=== PATIENT | male | born 1965 | race Caucasian/White ===

== ENCOUNTER 2020-08-03 09:05 | Inpatient (IN) ==
[2020-07-29 15:24] LABS: Appearance,Urine CLEAR; Bilirubin,Urine NEG (NEG); Color,Urine YELLOW; Culture Indicated,Urine NO; Glucose,Urine (UA) NEGATIVE (NEG); Ketones,Urine NEG (NEG); Leukocyte Esterase,Urine NEG /uL (NEG); Nitrate,Urine NEG (NEG); Protein,Urine NEG (NEG); Specific Gravity,Urine 1.017 (1.000-1.035); Urine Blood NEG mg/dL (<0.03); Urobilinogen,Urine NEG (NEG)
[2020-07-29 15:45] LABS: Basophils # (Auto) 0.04 K/mcL (0.00-0.30); Basophils % (Auto) 0.4 % (0.0-2.0); Eosinophils # (Auto) 0.23 K/mcL (0.00-0.70); Eosinophils % (Auto) 2.6 % (0.0-7.0); Granulocytes % (Auto) 62.7 % (38.0-78.0); Hematocrit 50.7 % (40.1-51.0); Hemoglobin 17.4 g/dL (13.7-17.5); Lymphocytes # (Auto) 2.39 K/mcL (1.50-4.80); Lymphocytes % (Auto) 26.7 % (15.5-49.0); Mean Cell Volume 90.9 fL (80.0-100.0); Mean Corpuscular HGB Conc 34.3 g/dL (31.0-36.0); Mean Platelet Volume 10.9 fL (7.4-10.4); Monocytes # (Auto) 0.68 K/mcL (0.10-0.90); Monocytes % (Auto) 7.6 % (1.0-12.0); Platelet Count 187 K/mcL (140-440); RBC 5.58 M/mcL (4.63-6.08); Red Cell Distribution Width 12.5 % (11.5-14.5); WBC 8.9 K/mcL (4.50-11.00)
[2020-07-29 15:57] LABS: Blood Urea Nitrogen 16 mg/dl (6-20); Calcium 9.3 mg/dl (8.6-10.4); Carbon Dioxide 25 mmol/L (22-30); Chloride 101 mmol/L (96-108); Glomerular Filtration Rate 96; Glucose 162 mg/dL (70-105)
[2020-07-29 15:58] LABS: Prothrombin Time 13.3 sec (11.9-14.5)
[~2020-08-03 09:05] MED LIST: ACETAMINOPHEN 500 MG TABLET PO SCH; CELECOXIB 200 MG CAPSULE PO SCH; IPRATROPIUM/ALBUTEROL 3 ML AMPUL.NEB NEB PRN; PREGABALIN 75 MG CAPSULE PO SCH; SCOPOLAMINE 1 PATCH PATCH TOPICAL PRN; ceFAZolin 3 GM in DEXTROSE 5% IN WATER 50 ML IV SCH; oxyCODONE 10 MG TAB.ER.12H PO SCH
[2020-08-03] MEDS ORDERED: HYDROmorphone 1 MG/ML SYRINGE ONE (10:48)
[2020-08-03] MEDS ORDERED: LIDOCAINE HCL/PF 100 MG/5 ML SYRINGE IV ONE (10:48)
[2020-08-03] MEDS ORDERED: DEXAMETHASONE 10 MG/ML VIAL ONE (10:48)
[2020-08-03] MEDS ORDERED: ROPIVACAINE HCL/PF 30 ML VIAL IJ ONE (10:48)
[2020-08-03] MEDS ORDERED: KETAMINE 100 MG/ML ML ONE (10:48)
[2020-08-03] MEDS ORDERED: SUCCINYLCHOLINE 20 MG/ML ML IV ONE (10:48)
[2020-08-03] MEDS ORDERED: ONDANSETRON 4 MG/2 ML VIAL ONE (10:48)
[2020-08-03] MEDS ORDERED: PHENYLEPHRINE 10 MG/ML VIAL ONE (10:48)
[2020-08-03] MEDS ORDERED: ROCURONIUM 10 MG/ML ML IV ONE (10:48)
[2020-08-03] MEDS ORDERED: MIDAZOLAM 5 MG/5 ML VIAL ONE (10:48)
[2020-08-03] MEDS ORDERED: fentaNYL 100 MCG/2 ML VIAL IV ONE (10:48)
[2020-08-03] MEDS ORDERED: PROPOFOL 200 MG/20 ML VIAL IV ONE (10:48)
[2020-08-03] MEDS ORDERED: SUGAMMADEX SODIUM 200 MG/2 ML VIAL IV ONE (10:48)
[2020-08-03] MEDS ORDERED: ePHEDrine 50 MG/ML AMPUL IV ONE (10:48)
[2020-08-03] MEDS ORDERED: GENTAMICIN SULFATE 800 MG/20 ML VIAL IR ONE (11:26)
[2020-08-03] MEDS ORDERED: diphenhydrAMINE 50 MG/ML VIAL IV PRN (11:41)
[2020-08-03] MEDS ORDERED: FLUMAZENIL 0.1 MG/ML ML IV PRN (11:41)
[2020-08-03] MEDS ORDERED: ONDANSETRON 4 MG/2 ML VIAL IV PRN ×2 (11:41→12:17)
[2020-08-03] MEDS ORDERED: IPRATROPIUM/ALBUTEROL 3 ML AMPUL.NEB NEB PRN (11:41)
[2020-08-03] MEDS ORDERED: fentaNYL 100 MCG/2 ML VIAL IV PRN (11:41)
[2020-08-03] MEDS ORDERED: HYDROmorphone 0.5 MG/0.5 ML SYRINGE IV PRN (11:41)
[2020-08-03] MEDS ORDERED: ePHEDrine 50 MG/ML AMPUL IV PRN (11:41)
[2020-08-03] MEDS ORDERED: MEPERIDINE 25 MG/ML SYRINGE IV PRN (11:41)
[2020-08-03] MEDS ORDERED: NALOXONE HCL 0.4 MG/ML VIAL IV PRN (11:41)
[2020-08-03] MEDS ORDERED: ATROPINE SULFATE 0.4 MG/ML VIAL IV PRN (11:41)
[2020-08-03] MEDS ORDERED: METHOCARBAMOL 1,000 MG/10 ML VIAL IV PRN (11:41)
[2020-08-03] MEDS ORDERED: PROMETHAZINE 25 MG/ML VIAL IV PRN (11:41)
[2020-08-03] MEDS ORDERED: BISACODYL 10 MG SUPP.RECT PR PRN (12:17)
[2020-08-03] MEDS ORDERED: HYDROmorphone 1 MG/ML SYRINGE IV PRN (12:17)
[2020-08-03] MEDS ORDERED: MAGNESIUM HYDROXIDE 30 ML ORAL.SUSP PO PRN (12:17)
[2020-08-03] MEDS ORDERED: ACETAMINOPHEN 325 MG TABLET PO PRN (12:17)
[2020-08-03] MEDS ORDERED: TRANEXAMIC ACID 1,000 MG/10 ML VIAL IV SCH (12:17)
[2020-08-03] MEDS ORDERED: FLEETS ADULT ENEMA PR PRN (12:17)
[2020-08-03] MEDS ORDERED: KETOROLAC 15 MG/ML VIAL IV PRN (12:17)
[2020-08-03] MEDS ORDERED: BENZOCAINE/MENTHOL 1 LOZENGE PO PRN (12:17)
[2020-08-03] MEDS ORDERED: POLYETHYLENE GLYCOL 3350 17 GM PACKET PO PRN (12:17)
--- NOTE | 2020-08-03 12:17 | Brief Operative Note ---
Brief Operative Note Date of procedure: 08/03/20 Pre-op diagnosis: left shoulder djd severe and torn bicep Post-op diagnosis: same Procedure: Right reverse tsa and bicep tenodesis Grafts/Implants: Yes Anesthesia: GETA Complications: none Surgeon: Bassem De La Fuente Room Service Clerk: Stone iMller Estimated blood loss (cc): 100 Tourniquet Time (Minutes): 0 Specimens Removed/Pathology: none sent Condition: stable Disposition: PACU
--- NOTE | 2020-08-03 12:30 | Discharge Plan ---
Discharge Instructions - TSA Patient Instructions Total Shoulder Protocol: Leave immobilizer in place except for bathing and ROM. Abduction pillow. Continue to wear sling until seen by physician. Codman Pendulum : These exercises use momentum produced by your body to move your shoulder joint. Bend your knees and shift your weight to your front leg, then back, allowing your arm to swing in the same directions. Using the same technique, alternately shift your weight between your right and left legs, allowing your arm to swing from side to side. These exercises are also performed in counterclockwise and clockwise circular motions. Typically these exercises are performed several times per day, for a set number repetitions or minutes, such as 20 times in a row or 5 minutes at a time. Discharge Plan Patient/Caregiver Discharge Instructions Activity: as per physical therapy Prescriptions: New hydrocodone-acetaminophen 10-325 mg Tablet 1 - 2 tab PO Q4HP PRN (Reason: Pain Level 3-6) Qty: 75 RF: 0 docusate sodium 100 mg Capsule 100 mg PO BID Qty: 60 RF: 0 No Action hydrochlorothiazide 50 mg Tablet 50 mg PO QAM RF: 0 naproxen 250 mg Tablet 500 mg PO BID RF: 0 amlodipine 5 mg Tablet 5 mg PO QDAY RF: 0 multivitamin with minerals [Daily Multivitamin-Minerals] Tablet 1 tab PO QDAY RF: 0 rosuvastatin 10 mg Tablet 10 mg PO QHS RF: 0 Other Ambulatory Orders: Brace/Splint (ONCE) Location: None Selected Ordered By: Stone Miller [facility] - TSA (Routine) Location: None Selected Ordered By: Stone Miller Follow Up Plan Follow up with: Stone Miller PA-C [Phys[facility] [employer]] - 08/18/20 10:40 am Patient Disposition: Home, Self-Care Prognosis: Good Rehab Potential: Good I certify that the patient requires SNF services: No Overall status at discharge: patient is progressing back to baseline Discharge Orders: Discharge Order (Routine); Ordered 08/04/20 Ordered By: Stone Miller
--- NOTE | 2020-08-03 14:36 | Operative Note ---
DATE OF OPERATION: 08/03/2020 PREOPERATIVE DIAGNOSIS: Left shoulder degenerative arthritis, severe. POSTOPERATIVE DIAGNOSIS: Left shoulder degenerative arthritis, severe. PROCEDURE: Left reverse total shoulder. SURGEON: Bassem De La Fuente M.D. MANAGER UNIT: Stone Miller PA-C. The PA's assistance was required for the safe and efficient completion of the entire case. This provider's expertise and technical skill were required throughout the case. The PA assisted with preoperative coordination, intraoperative retraction, wound closure, dressing and splint application, as well as postoperative documentation and care coordination. ANESTHESIA: General LMA anesthesia. COMPLICATIONS: None. ESTIMATED BLOOD LOSS: 100 mL. IMPLANTS: Chantel components. See the nurse's note. DESCRIPTION OF PROCEDURE: The patient was brought to the operating room and put to sleep with general LMA anesthesia. Once asleep, the patient had the left shoulder sterilely prepped and draped in the usual sterile fashion. Ioban was placed over the skin. We made a deltopectoral approach after a timeout was performed. Cephalic vein was preserved, retracting it laterally with the deltoid. We released the subscap anteriorly and then we dislocated the humeral head anteriorly. We made our neck cut at 135 degrees at the articular surface interface. Severe arthritis was noted throughout. We harvested the biceps tendon and performed a tenodesis to the pectoralis major with #2 Ethibond sutures x2. We irrigated and subluxed the humerus posteriorly and then reamed up the glenoid after removing the labrum and performing a 360-degree capsulotomy. Once this was done, we were able to then center the metaglene. The metaglene was centered with a 36 mm central screw. We were able to then place a 40 mm metaglene with 2 mm of offset and 4 mm of the eccentricity to cover the bone. Once this was done, we were able to then broach up on the humeral side to a size 13 stem. A standard thickness poly seemed to fit very nicely. We irrigated thoroughly and placed a small amount of cement on the stem and then placed a standard poly. This was reduced. The patient had a stable shoulder throughout and 1 mm of play indicating the correct tension. We irrigated thoroughly. We closed the deltopectoral interval with #1 Stratafix. Skin was closed with Stratafix and adhesive closure. The patient tolerated this well without complication. SRINATH:[email or web address] Job ID: [id number] Doc ID: [id number] Bassem De La Fuente MD
[2020-08-03] MEDS: LACTATED RINGERS 1,000 ML IV SCH ×2 (14:43→20:48)
--- NOTE | 2020-08-03 14:56 | XRay Report ---
HISTORY: Postop left arthroplasty FINDINGS: There is a well-positioned reverse left shoulder prosthesis. No fracture or subluxation are present. There is a spur along the inferior border of the acromion. IMPRESSION: well-positioned left shoulder prosthesis Interpreted and Authenticated by: Hao Bartlett 08/03/20
[2020-08-03] MEDS: 0.9 % SODIUM CHLORIDE 10 ML SYRINGE IV SCH ×2 (17:21→20:01)
[2020-08-03] MEDS: HYDROcodone/APAP 10/325MG TABLET PO PRN ×2 (17:33→21:52)
[2020-08-03] MEDS: ceFAZolin 1 GM VIAL IV SCH (19:59)
[2020-08-03] MEDS: NAPROXEN 250 MG TABLET PO SCH (20:00)
[2020-08-03] MEDS: DOCUSATE SODIUM 100 MG CAPSULE PO SCH (20:00)
[2020-08-03] MEDS ORDERED: TEMAZEPAM 15 MG CAPSULE PO PRN (21:00)
[2020-08-03] MEDS ORDERED: ATORVASTATIN 20 MG TABLET PO SCH (21:00)
[2020-08-03] MEDS ORDERED: SENNOSIDES 1 TABLET PO SCH (21:00)
[2020-08-04] MEDS: ceFAZolin 1 GM VIAL IV SCH (03:58)
[2020-08-04] MEDS: 0.9 % SODIUM CHLORIDE 10 ML SYRINGE IV SCH (03:59)
--- NOTE | 2020-08-04 07:53 | Orthopedic Progress Note ---
SUBJECTIVE Subjective Patient information: Note initiated : 08/04/20 at 7:52 am Service Date, if different from initiated Date: [] Patient: Dominguez Shah 55 y/o M admitted on 08/03/20 for Left Reverse Total Shoulder with Bicep Tendon . Chief Complaint: [Pt is stable this morning on post operative day 1 without any significant concerns or complaints. Patients vital signs have remained stable. Patients dressing is dry and is grossly intact from a neurovascular and motor standpoint. Patients 10 point ROS is otherwise negative. ] Constitutional Vitals: Vital Signs Temp Pulse Resp BP Pulse Ox 97.5 F 93 H 20 138/92 94 08/04/20 07:29 08/04/20 07:29 08/04/20 07:29 08/04/20 07:29 08/04/20 07:29 Period Temp Pulse Resp BP Sys/Dorado Pulse Ox Last 24 Hr 97.2 F-98.5 F 93-130 16-24 117-154/72-104 84-98 Intake and Output 08/03/20 08/04/20 08/04/20 21:59 05:59 13:59 Intake Total 1280 2030 Output Total 400 300 Balance 880 1730 Weight 288 lb 11.2 oz Intake & Output: Intake & Output 08/03/20 08/04/20 08/04/20 21:59 05:59 13:59 Intake Total 1280 2030 Output Total 400 300 Balance 880 1730 Weight 288 lb 11.2 oz Intake: IV 950 Lactated Ringers 1,000 ml @ 100 950 mls/hr IV .Q10H [facility] Rx#: [id number] Oral 1280 1080 Output: Void Amount 400 300 Other: Meal Dinner Nourishment/Supplement Percent of Meal Consumed 100% 100% Feeding Ability Independent Independent Urine Appearance Clear Urine Color Dark Yellow Urine Odor Strong # Voids 1 Extremities Exam Extremities exam: Present normal inspection, Foot pink and warm and neurovascular intact OBJ DATA Labs CBC & Chem 7: 07/29/20 13:31 07/29/20 13:31 Meds: Medications Acetaminophen (Tylenol) 650 mg PO Q6HP PRN PRN Reason: PAIN/FEVER > 101 Hydrocodone Bitart/Acetaminophen ([place] 10/325mg) 0 tab PO Q4HP PRN PRN Reason: PAIN LEVEL 3-6 Last Admin: 08/03/20 21:52 Dose: 1 tab Documented by: Amlodipine Besylate (Norvasc) 5 mg PO QDAY [facility] Atorvastatin Calcium (Lipitor) 20 mg PO [facility] Last Admin: 08/03/20 20:00 Dose: 20 mg Documented by: Bisacodyl (Dulcolax) 10 mg NV Q2-3DAYS PRN PRN Reason: Constipation Docusate Sodium (Colace) 100 mg PO BID [facility] Last Admin: 08/03/20 20:00 Dose: 100 mg Documented by: Hydrochlorothiazide (Oretic) 50 mg PO DAILY [facility] Hydromorphone HCl (Dilaudid) 0 mg IV Q2HP PRN; Protocol PRN Reason: Per Pain Protocol Last Admin: 08/04/20 02:12 Dose: 1 mg Documented by: Lactated Ringer's (Lactated Ringers) 1,000 mls @ 100 mls/hr IV .Q10H [facility] Last Infusion: 08/04/20 00:13 Dose: Infused Documented by: Iron Carb/Multivit/[place]/Folic Acid (Multivitamin W/Minerals) 1 tab PO DAILY [facility] Magnesium Hydroxide (Milk Of Magnesia) 30 ml PO BIDP PRN PRN Reason: Constipation Naproxen (Naprosyn) 500 mg PO BID [facility]; Protocol Last Admin: 08/03/20 20:00 Dose: 500 mg Documented by: Ondansetron HCl (Zofran) 4 mg IV Q4HP PRN PRN Reason: Nausea And Vomiting Polyethylene Glycol (Miralax) 17 gm PO DAILYP PRN PRN Reason: Constipation Scopolamine (Transderm-Scop) 1 patch TOPICAL PREOP PRN PRN Reason: Nausea And Vomiting Senna (Senokot) 2 tab PO [facility] Last Admin: 08/03/20 20:00 Dose: 2 tab Documented by: Sodium Biphosphate/Sodium Phosphate (Fleets Adult) 1 dose NV Q3-4DAYS PRN PRN Reason: Constipation Sodium Chloride (Saline Flush) 10 ml IV Q8 [facility] Last Admin: 08/04/20 03:59 Dose: 10 ml Documented by: Temazepam (Restoril) 15 mg PO HSP PRN PRN Reason: Insomnia Throat Lozenges (Cepacol) 1 lozenge PO PRN PRN PRN Reason: Sore Throat A/P Narrative A/P Narrative: The patient has been educated regarding dressing care, Physical Therapy recommendations, home exercises, restrictions, and follow up appointments. The patient has had all necessary DME prescribed. The patient has remained relatively stable during their hospital course. Time Spent With Patient Time: Total time spent is greater than 50% in coordination of care (as documented) at patient's floor/unit and/or counseling patient: Total time spent with greater than 50% in coordination of care (as documented) at patient's floor/unit and/or counseling patient:: less than 15 minutes
[2020-08-04] MEDS: NAPROXEN 250 MG TABLET PO SCH (08:55)
[2020-08-04] MEDS: DOCUSATE SODIUM 100 MG CAPSULE PO SCH (08:56)
[2020-08-04] MEDS ORDERED: amLODIPine 5 MG TABLET PO SCH (09:00)
[2020-08-04] MEDS ORDERED: MULTIVIT,THER IRON,CA,FA & MIN 1 TABLET PO SCH (09:00)
[2020-08-04] MEDS ORDERED: HYDROCHLOROTHIAZIDE 25 MG TABLET PO SCH (09:00)
== END 2020-08-04 11:47 | disposition home or self-care (01) | DRG 483 ==
LOC: MEDSUR 09:05
PROVIDERS: ADMIT Orthopaedic Surgery; ATTEND Orthopaedic Surgery